=== PATIENT | female | born 1945 | race Two or more races ===

== ENCOUNTER 2021-04-08 07:30 | Inpatient (IN) | payer OTHER ==
[~2021-04-08] VITALS: Ht 165.1 cm; Wt 81.6 kg
== END 2021-04-14 15:30 | DRG 470 ==
LOC: SURG 04-12 05:55 → O/R 04-12 05:55 → SURH 04-12 07:30 → SURG 04-12 11:59
PROVIDERS: ADMIT Orthopaedic Surgery; ATTEND Orthopaedic Surgery
PROC: 0SRD0J9 Replacement of Left Knee Joint with Synthetic Substitute, Cemented, Open Approach (ICD-10-PCS; principal; 2021-04-12 09:30)
DX: M17.12 Unilateral primary osteoarthritis, left knee (principal); D62 Acute posthemorrhagic anemia; M65.862 Other synovitis and tenosynovitis, left lower leg; M85.662 Other cyst of bone, left lower leg; I10 Essential (primary) hypertension